=== PATIENT | female | born 1970 | race Caucasian/White ===

== ENCOUNTER 2019-05-31 06:51 | Inpatient (IN) | payer OTHER, SELFPAY ==
[2019-05-31] MEDS ORDERED: Bupivacaine 0.5% 50 ML MDV ONE (06:57)
[2019-05-31] MEDS ORDERED: Meropenem 500 MG SDV ONE (06:57)
[2019-05-31] MEDS ORDERED: Lidocaine 1% with EPINEPHrine 1:100,000 50 ML MDV ONE (06:57)
[2019-05-31] MEDS ORDERED: Acetaminophen 500 MG Tab PO ONE (07:30)
[2019-05-31] MEDS ORDERED: Celecoxib 200 MG Cap PO ONE (07:30)
[2019-05-31] MEDS ORDERED: Scopolamine 1.5 MG Transdermal Patch TRDERM SCH (08:00)
[2019-05-31] MEDS ORDERED: cefOXitin 2 GM in Sodium Chloride 0.9% 50 ML IV ONE (08:30)
[2019-05-31] MEDS ORDERED: Dextrose 5%-Lactated Ringers 1,000 ML IV SCH ×2 (08:30→12:15)
[2019-05-31] MEDS ORDERED: fentaNYL 250 MCG/5 ML SDV ONE ×2 (08:46→09:33)
[2019-05-31] MEDS ORDERED: Succinylcholine 200 MG/10 ML MDV ONE (08:46)
[2019-05-31] MEDS ORDERED: Neostigmine Methylsulfate 1 MG/ML 5 ML Syringe ONE (08:46)
[2019-05-31] MEDS ORDERED: Rocuronium 50 MG/5 ML Vial ONE (08:46)
[2019-05-31] MEDS ORDERED: Dexamethasone 4 MG/ML SDV ONE (08:46)
[2019-05-31] MEDS ORDERED: Glycopyrrolate 0.2 MG/ML 5 ML MDV ONE (08:46)
[2019-05-31] MEDS ORDERED: Ondansetron 4 MG/2 ML SDV ONE (08:46)
[2019-05-31] MEDS ORDERED: Propofol 200 MG/20 ML SDV ONE (08:46)
[2019-05-31] MEDS ORDERED: Ketamine 500 MG/5 ML MDV IV SCH (09:30)
[2019-05-31] MEDS ORDERED: Ketamine 50 MG in Sodium Chloride 0.9% 49.5 ML IV SCH (09:30)
[2019-05-31] MEDS: cefOXitin 2 GM in Sodium Chloride 0.9% 50 ML IV ONE ×2 (09:39→13:24)
[2019-05-31] MEDS ORDERED: fentaNYL 100 MCG/2 ML SDV IVPUSH ONE ×2 (10:41→10:57)
[2019-05-31] MEDS ORDERED: hydrOXYzine HCL 100 MG/2 ML SDV IM ONE (10:41)
[2019-05-31] MEDS ORDERED: Ondansetron 4 MG/2 ML SDV IVPUSH ONE (10:41)
[2019-05-31] MEDS ORDERED: Metoclopramide 10 MG/2 ML SDV IV ONE (10:45)
[2019-05-31] MEDS ORDERED: HYDROmorphone 0.5 MG/0.5 ML Syringe IVPUSH PRN (11:47)
[2019-05-31] MEDS: HYDROmorphone 1 MG/ML Syringe IV PRN ×2 (11:53→15:17)
[2019-05-31] MEDS ORDERED: diphenhydrAMINE 50 MG/ML SDV IVPUSH PRN ×2 (12:01→15:01)
[2019-05-31] MEDS ORDERED: Cyclobenzaprine 10 MG Tab PO PRN ×2 (12:01→12:11)
[2019-05-31] MEDS ORDERED: Acetaminophen 500 MG Tab PO PRN (12:01)
[2019-05-31] MEDS ORDERED: Labetalol 20 MG/4 ML Syringe IVPUSH PRN (12:01)
[2019-05-31] MEDS ORDERED: oxyCODONE 5 MG Tab PO PRN (12:01)
[2019-05-31] MEDS ORDERED: Metoclopramide 10 MG/2 ML SDV IVPUSH PRN (12:01)
[2019-05-31] MEDS ORDERED: Labetalol 100 MG/20 ML MDV IVPUSH PRN (12:11)
[2019-05-31] MEDS ORDERED: Warfarin 5 MG Tab PO ONE (13:00)
[2019-05-31] MEDS: Pantoprazole 40 MG Vial IVPUSH SCH (13:03)
[2019-05-31] MEDS: Enoxaparin 100 MG/1 ML Syringe SUBCUT SCH (13:04)
[2019-05-31] MEDS ORDERED: Acetaminophen 1,000 MG in Premix Bag 1 BAG IV ONE (13:10)
[2019-05-31] MEDS: Acetaminophen 500 MG Tab PO SCH ×2 (13:11→21:21)
[2019-05-31] MEDS: cefOXitin 2 GM in Sodium Chloride 0.9% 50 ML IV SCH ×2 (14:04→21:21)
[2019-05-31] MEDS ORDERED: Ondansetron 4 MG/2 ML SDV IVPUSH PRN (15:01)
[2019-05-31] MEDS ORDERED: diphenhydrAMINE 25 MG Cap PO PRN (15:01)
[2019-05-31] MEDS ORDERED: Naloxone 0.4 MG/ML SDV IVPUSH PRN (15:01)
[2019-05-31] MEDS ORDERED: HYDROmorphone/Normal Saline 15 MG/30 ML PCA IV PRN (15:15)
[2019-05-31] MEDS ORDERED: MVI, Adult with Vitamin K 10 ML, Thiamine 200 MG, Chromium/Copper/Mang/Selen/Zn 1 ML in... IV SCH ×4 (16:00)
[2019-05-31] MEDS: Ondansetron 4 MG/2 ML SDV IVPUSH PRN (17:58)
[2019-06-01] MEDS: cefOXitin 2 GM in Sodium Chloride 0.9% 50 ML IV SCH (02:38)
[2019-06-01] MEDS ORDERED: Iopamidol 612 MG/ML 50 ML SDV PO STA (02:52)
[2019-06-01] MEDS: Acetaminophen 500 MG Tab PO SCH ×3 (05:47→21:26)
[2019-06-01] MEDS ORDERED: Dextrose 5%-Lactated Ringers 1,000 ML IV SCH (07:15)
[2019-06-01] MEDS: Celecoxib 200 MG Cap PO SCH ×2 (08:00→21:27)
[2019-06-01] MEDS: Enoxaparin 100 MG/1 ML Syringe SUBCUT SCH (08:00)
[2019-06-01] MEDS: SCOPOLAMINE PATCH CHECK TOP SCH (08:00)
[2019-06-01] MEDS: Docusate Sodium 100 MG Cap PO SCH ×2 (08:48→21:27)
--- NOTE | 2019-06-01 09:30 | CR ---
[facility] HISTORY: Postbariatric surgery FINDINGS: Patient swallowed water-soluble contrast. Upright views of the abdomen show no evidence of obstruction. There is contrast in the excluded portion IMPRESSION: Status post bariatric surgery No obstruction seen. There is contrast in what appears to be the excluded portion of the stomach
[2019-06-01] MEDS ORDERED: Warfarin 5 MG Tab PO ONE ×2 (10:00→14:30)
[2019-06-01] MEDS: Pantoprazole 40 MG Vial IVPUSH SCH (13:37)
[2019-06-01] MEDS ORDERED: MVI, Adult with Vitamin K 10 ML, Thiamine 200 MG, Chromium/Copper/Mang/Selen/Zn 1 ML in... IV SCH ×4 (16:00)
[2019-06-02] MEDS: Acetaminophen 500 MG Tab PO SCH ×3 (06:14→21:00)
[2019-06-02] MEDS: Docusate Sodium 100 MG Cap PO SCH ×2 (08:38→20:59)
[2019-06-02] MEDS: Celecoxib 200 MG Cap PO SCH ×2 (08:38→20:59)
[2019-06-02] MEDS: Enoxaparin 100 MG/1 ML Syringe SUBCUT SCH (08:38)
[2019-06-02] MEDS: SCOPOLAMINE PATCH CHECK TOP SCH (08:39)
[2019-06-02] MEDS: Bisacodyl 5 MG Tab PO SCH ×2 (08:42→21:00)
[2019-06-02] MEDS ORDERED: Magnesium Hydroxide 400 MG/5 ML Susp 30 ML Cup PO ONE (09:00)
[2019-06-02] MEDS ORDERED: Cyanocobalamin (Vitamin B12) 1,000 MCG/ML SDV IM ONE (09:00)
[2019-06-02] MEDS: HYDROmorphone 2 MG Tab PO PRN ×2 (11:45→17:42)
[2019-06-02] MEDS ORDERED: Sodium Chloride 0.9% 10 ML Syringe IV PRN (12:28)
[2019-06-02] MEDS ORDERED: WARFARIN PO ONE ×2 (13:00)
[2019-06-02] MEDS: Pantoprazole 40 MG Delayed-Release Granules 1 Packet PO SCH (17:37)
[2019-06-02] MEDS: Ondansetron 4 MG/2 ML SDV IVPUSH PRN (17:42)
[2019-06-03] MEDS: Acetaminophen 500 MG Tab PO SCH ×3 (05:55→22:01)
[2019-06-03] MEDS: Magnesium Hydroxide 400 MG/5 ML Susp 30 ML Cup PO SCH ×2 (08:39→20:16)
[2019-06-03] MEDS: Docusate Sodium 100 MG Cap PO SCH ×2 (08:40→20:16)
[2019-06-03] MEDS: Bisacodyl 5 MG Tab PO SCH ×2 (08:40→20:16)
[2019-06-03] MEDS: Enoxaparin 100 MG/1 ML Syringe SUBCUT SCH (08:40)
[2019-06-03] MEDS: SCOPOLAMINE PATCH CHECK TOP SCH (08:40)
[2019-06-03] MEDS: Celecoxib 200 MG Cap PO SCH ×2 (08:41→20:16)
[2019-06-03] MEDS ORDERED: Scopolamine 1.5 MG Transdermal Patch TRDERM SCH (09:00)
[2019-06-03] MEDS ORDERED: WARFARIN PO ONE ×2 (13:00)
--- NOTE | 2019-06-03 14:02 | PN ---
DATE OF SERVICE: 06/02/2019 The patient has been afebrile with stable vital signs. Oral intake is fairly good. We will go up to step 3 diet today and begin more intense bowel stimulation and we will go over to oral pain medication. Her pro-time remains subtherapeutic, and we will give her 22 mg of Coumadin today. This is someone who normally takes quite high doses in the 15 to 17 range in a day, so this is not untoward dosing in this case. The patient may or may not be ready for discharge home tomorrow. Quirino Barker MD /[id number] MTDD
[2019-06-03] MEDS: Pantoprazole 40 MG Delayed-Release Granules 1 Packet PO SCH (16:36)
[2019-06-03] MEDS: Ondansetron 4 MG/2 ML SDV IVPUSH PRN (19:37)
[2019-06-04] MEDS: Acetaminophen 500 MG Tab PO SCH (05:47)
[2019-06-04] MEDS: Celecoxib 200 MG Cap PO SCH (08:14)
[2019-06-04] MEDS: Docusate Sodium 100 MG Cap PO SCH (08:14)
[2019-06-04] MEDS: Bisacodyl 5 MG Tab PO SCH (08:14)
[2019-06-04] MEDS: Enoxaparin 100 MG/1 ML Syringe SUBCUT SCH (08:15)
[2019-06-04] MEDS ORDERED: Ondansetron 4 MG Tab.DIS PO ONE (08:30)
[2019-06-04] MEDS: SCOPOLAMINE PATCH CHECK TOP SCH (09:04)
[2019-06-04] MEDS: HYDROmorphone 2 MG Tab PO PRN (09:05)
--- NOTE | 2019-06-04 10:15 | PN ---
DATE OF SERVICE: 06/01/2019 The patient has been afebrile with stable vital signs. She slept well. In regard to the pain control with BUSINESS SOLUTIONS ARCHITECT, she is doing well. Continue Celebrex and Tylenol and will leave the BUSINESS SOLUTIONS ARCHITECT going for today. Otherwise, upper GI x-ray looks good and we will go up to a step 2 diet today. The Mccain catheter will come out. We will back down the IV rate. Her ProTime is only around 11, so we will give her the 20 mg of Coumadin today and recheck that tomorrow. Otherwise continue with Lovenox. Quirino Barker MD /[id number]
--- NOTE | 2019-06-04 13:51 | PN ---
DATE OF SERVICE: 06/03/2019 The patient has been afebrile with stable vital signs. Still somewhat distended and not moved her bowels as of yet. We will continue bowel stimulation today. Her pro time remains subtherapeutic. We will give her mg of Coumadin today. She probably will be ready for discharge home tomorrow. Quirino Barker MD /[id number]
--- NOTE | 2019-06-04 15:32 | DISCH ---
ADMISSION DIAGNOSES: 1. Partial small bowel obstruction. 2. Right ovarian cyst. 3. Status post Delfina-en-Y gastric bypass surgery. 4. Unspecified surgical malabsorption. 5. B12 deficiency. 6. History of pulmonary embolism. 7. Restless legs syndrome. 8. Heterozygous factor V Leiden mutation. 9. Non-alcoholic fatty liver disease. 10.Chronic anticoagulation therapy. DISCHARGE DIAGNOSES: 1. Exploratory laparotomy with lysis of adhesions: a. Reduction of small bowel volvulus and closure of internal hernia. b. Small bowel resection. c. Separate enterostomy to restore Delfina-en-Y small bowel anatomy. d. Right oophorectomy. 2. Repair of incarcerated incisional hernia: a. Placement of Interceed mesh. b. Small bowel strictureplasty. POSTOPERATIVE DIAGNOSES: 1. Partial small bowel obstruction associated with small bowel volvulus. 2. Probable chronic intussusception at the jejunojejunostomy. 3. Incarcerated incisional hernia. 4. 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 5. Large right ovarian cyst. 6. Incisional hernia. Date of surgery: 05/31/2019. Surgeon: Quirino Barker MD. HISTORY: Florence Butt presented to the clinic with abdominal pain. After preoperative evaluation and discussion of possible risks and possible complications and bridging of her Coumadin to bridging with Lovenox. She was scheduled for surgery on 05/31/2019. She had no operative complications. On postoperative day #1, vital signs were stable. She continued to have pain control with FLYER BUILDER Celebrex and Tylenol. Upper GI was normal. Started on a step 2 gastric bypass diet. Mccain catheter was discontinued. She was given 20 mg of Celebrex along with continuation of the Lovenox. On 06/03/2019, she remained afebrile. Vital signs were stable. Started on a step 3 gastric bypass diet. Began a bowel stimulation and went to oral pain medication. ProTime was subtherapeutic, was given 22 mg of Coumadin. On 06/03/2019, INR was 1.41. Vital signs remained stable. She had not had a bowel movement yet. Coumadin was given 22 mg onetime. Continue to work on bowels, ambulation. Pain was controlled, tolerated a step 3 diet well. On 06/04/2019, Florence had a bowel movement. Her pain was controlled. She was able to be discharged to home. Her last PT 22.1 and INR is 2.14. She was able to be discharged to home without any complications. PHYSICAL EXAMINATION: GENERAL: Florence Butt is a pleasant 49-year-old female. VITAL SIGNS: Height is 5 feet 4.5 inches, weight is 211 pounds, BMI 35.8. TPR 96.1, 57, 16, blood pressure 119/73. HEENT: Negative. NECK: Supple. HEART: Regular rate and rhythm. LUNGS: Clear. ABDOMEN: Aleisha intact. Abdominal binder has been on. EXTREMITIES: Without peripheral edema. DISPOSITION: Discharged to home. CONDITION: Stable and improving. FOLLOWUP: Followup appointment with Tatiana Garcia PA-C, 06/11/2019 at 10:30 a.m. NEW PRESCRIPTIONS: 1. Tylenol Extra Strength 1000 mg oral q.8 hours p.r.n. pain. 2. Dilaudid 2 mg every 4 hours p.r.n. pain #42. 3. Zofran ODT 4 mg every 6 hours p.r.n. nausea. 4. She is to resume her home medications: Vitamin C 2000 mg oral daily, calcium with vitamin D 1 oral twice daily, vitamin B12 1000 mcg IM every 14 days, vitamin B12 1000 mcg sublingual daily, Lasix 20 mg oral twice daily, iron 60 mg oral twice daily, multivitamin chewable twice daily, vitamin K at 100 mcg oral daily, potassium 10 mEq oral twice daily, ranitidine 150 mg oral daily p.r.n. acid reflux, thiamine B1 100 mg daily, vitamin B complex 1 oral daily. Warfarin 18 mg every Tuesday and Tuesday, warfarin 17.5 mg every Tuesday, Tuesday, Tuesday, , and Tuesday. DIET: Step 3 gastric bypass diet for 2 weeks until 06/14/2019. Drink 8 to 10 glasses of water a day. ACTIVITY: No lifting over 10 pounds for 6 weeks. Other activity: Walk at least 6 times daily inside your home. Driving: Do not drive for 1 week and while on pain medication. Shower/bathing: May shower. DISCHARGE INSTRUCTIONS: Notify provider if any fever, increased pain, nausea, or vomiting. Keep site clean and dry. Wear abdominal binder for 6 weeks if tolerated. SPECIAL INSTRUCTION: Use incentive spirometer 10 times every hour while awake for 1 week.
--- NOTE | 2019-06-06 10:55 | OR ---
DATE OF PROCEDURE: 05/31/2019 SURGEON: Quirino Barker MD PREOPERATIVE DIAGNOSIS: Partial small bowel obstruction. POSTOPERATIVE DIAGNOSES: 1. Partial small bowel obstruction associated with small bowel volvulus and probable chronic intussusception at jejunojejunostomy. 2. Incarcerated incisional (trocar site) hernia. 3. 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 4. Large right ovarian cyst. OPERATIVE PROCEDURES: 1. Exploratory laparotomy with lysis of adhesions and: a. Reduction of small bowel volvulus and closure of internal hernia (85763). b. Small bowel resection (71108). c. Separate enteroenterostomy to restore Delfina-en-Y small bowel anatomy (89492). d. Right salpingo-oophorectomy including removal of large right ovarian cyst (77283). e. Small bowel stricturoplasty (06808). f. Repair of incarcerated incisional hernia (18695). g. Placement of Interceed mesh to limit recurrent adhesion formation between pelvic and abdominal wall and underlying viscera (68548). ANESTHESIA: General. SHOE STAMPER: Tatiana Garcia PA-C INDICATIONS FOR PROCEDURE: This is a 49-year-old presenting with postprandial crampy abdominal pain and bloating consistent with partial small bowel obstruction. Plan is to proceed with exploratory laparotomy with reduction of any volvulus that might be encountered as well as lysis of adhesions and possible bowel resection. The patient also has a large right ovarian cyst. This will be excised concurrently. She is aware that in a latter case if the malignancy if identified on the final pathology, additional operative treatment would be required, but based on this being apparently a simple cyst and no other signs of malignancy, we will proceed with the ovarian cystectomy at this time and wait for the pathology report which would allow us to limit the amount of incision used. Otherwise, the patient's partial small bowel obstruction would be treated as noted above with lysis of adhesions, reduction of any volvulus and loop of small bowel resection as indicated. Potential risks including bleeding and leaks from GI tract closures and the possibility of cardiopulmonary, septic, or hemorrhagic complications leading to were discussed were all reviewed, and the patient wishes to proceed. DETAILS OF PROCEDURE: The patient was taken to the operating room, placed in a supine position. After general endotracheal anesthesia was induced, a Mccain catheter was inserted, and the abdomen prepped and draped. A midline incision from the umbilicus roughly a handsbreadth toward the xiphoid was made and carried down through the full-thickness abdominal wall. Upon entering the peritoneal cavity, general exploration was undertaken. The patient was noted to have a focal volvulus where the small bowel including the jejunojejunostomy had rotated in a plane underneath the Delfina limb. As this was reduced, that mesenteric defect was closed with a 2-0 silk stitch. The jejunojejunostomy was noted to be quite edematous and boggy in appearance consistent with some probable chronic intussusception which would also likely be causing some of the symptoms. The patient also had a stricture at the previous anastomosis between the biliopancreatic limb with somewhat of a distended biliopancreatic limb proximal to that area. Reaching into the pelvis, an easily mobile right ovarian cyst was mobilized upward. This was roughly the size of a large potato in size and configuration. This was easily mobilized near the incision and uterine tube and attachments of the ovary were then divided with FISH susan and the specimen delivered from the field. Of note, the specimen was delivered intact and there were no signs of anything being malignant elsewhere in the abdomen. This appeared to be most likely a benign simple cyst. The left ovary was inspected and found to be normal. Given the appearance of the jejunojejunostomy that area was then resected, 3 components were divided with FISH susan as was the underlying mesentery and the specimen delivered from the field. GI tract continuity was initiated with a [id number] enteroenterostomy between what had been the distal-most biliopancreatic limb to the proximal-most common limb. This was a side- to-side enteroenterostomy with an internal firing of the Endo-FISH 60 mm stapler, common opening was closed transversely with the same stapler and the angles anastomosed and mesenteric defect was then approximated with some 3-0 Vicryl stitch. In the case of the mesentery, 2-0 silk stitch. GI tract continuity was then established with anastomosis of the Delfina limb to a point roughly 20 cm distal to the first anastomosis with same sequence of staplers and closure of the angles anastomosis and mesenteric defect. The area of the stricture in the biliopancreatic limb was then treated by opening the antimesenteric border near that previous anastomosis and resecting a small edge of that. This was then treated with a [id number] 60 mm internal firing of the FISH stapler and the common opening closed transversely with the same stapler and the angles anastomosed were reinforced with some 3-0 Vicryl stitch. In this case, there was no mesenteric defect. At this point, no further problems were noted. Upon entering the abdomen, the patient was noted to have an incarcerated trocar hernia located somewhat just above the umbilicus. Hernia and its content had been delivered from the field. After irrigating the abdomen containing saline solution, Interceed mesh was placed underneath the incision, from there down toward the pelvis to displace those surfaces from the underlying viscera to limit recurrent adhesion formation. The patient received bilateral transversus abdominis plane blocks and the fascia injected with some 0.5% Marcaine mixed with lidocaine. The fascia was then closed with a #2 Vicryl stitch and the subcutaneous tissue with 2 layers of 3-0 and 4-0 Vicryl stitch deep and susan for the skin. Dressing was applied. The patient was taken to the recovery room in satisfactory condition. Physician media assistant, Tatiana Garcia, played an essential role in assisting in this case, helping to position the patient, retract structures as needed, as well as suturing and cutting sutures when indicated. Her presence improved patient safety and decreased operative time. Quirino Barker MD /[id number]
== END 2019-06-04 09:25 | disposition home or self-care (01) | DRG 326 ==
LOC: JP.SDSSCHI 06:51 → JP.SDS 06:51 → JP.MS 10:40 → EDSTATUS 11:15
PROVIDERS: ADMIT Surgery; ATTEND Surgery
PROC: 0DB80ZZ Excision of Small Intestine, Open Approach (ICD-10-PCS; principal; 2019-05-31)
PROC: 0WQF0ZZ Repair Abdominal Wall, Open Approach (ICD-10-PCS; principal; 2019-05-31)
PROC: 0D160ZA Bypass Stomach to Jejunum, Open Approach (ICD-10-PCS; principal; 2019-05-31)
PROC: 3E0M05Z Introduction of Adhesion Barrier into Peritoneal Cavity, Open Approach (ICD-10-PCS; principal; 2019-05-31)
PROC: 0DS80ZZ Reposition Small Intestine, Open Approach (ICD-10-PCS; principal; 2019-05-31)
PROC: 0DQ80ZZ Repair Small Intestine, Open Approach (ICD-10-PCS; principal; 2019-05-31)
PROC: 0UB00ZZ Excision of Right Ovary, Open Approach (ICD-10-PCS; principal; 2019-05-31)
DX: K94.19 Other complications of enterostomy (principal); K56.2 Volvulus; K43.0 Incisional hernia with obstruction, without gangrene; K90.9 Intestinal malabsorption, unspecified; D68.51 Activated protein C resistance; K56.1 Intussusception; N25.81 Secondary hyperparathyroidism of renal origin; K94.13 Enterostomy malfunction; Y83.8 Other surgical procedures as the cause of abnormal reaction of the patient, or of later complication, without mention of misadventure at the time of the procedure; N83.201 Unspecified ovarian cyst, right side; E53.8 Deficiency of other specified B group vitamins; G25.81 Restless legs syndrome; K76.0 Fatty (change of) liver, not elsewhere classified; E66.01 Morbid (severe) obesity due to excess calories; F32.9 Major depressive disorder, single episode, unspecified; I10 Essential (primary) hypertension; Z86.711 Personal history of pulmonary embolism; Z79.01 Long term (current) use of anticoagulants; Z98.84 Bariatric surgery status; Z79.899 Other long term (current) drug therapy; Z90.49 Acquired absence of other specified parts of digestive tract; Z90.710 Acquired absence of both cervix and uterus; Z68.35 Body mass index [BMI] 35.0-35.9, adult
CPT/HCPCS: 36415; 74240; 74240-26; 85610; 86304; 88302; 88307; 94762; A9270-GY; C9113; J0131; J0171; J0330; J0694; J1100; J1170; J1650; J2185; J2405; J2704; J2710; J2765; J2795; J3010; J3410; J3411; J3420; J3490; J7050; J7121; Q9967